=== PATIENT | female | born 1970 | race Two or more races ===

== ENCOUNTER 2020-11-14 17:50 | Emergency (ER) | payer OTHER ==
[2020-11-14 18:18] VITALS: BP 151/98; PULSE 71; TEMP 98.3; BMI 30.2
== END 2020-11-14 20:20 | disposition home or self-care (01) ==
LOC: JER 17:50
DX: R07.89 Other chest pain (principal)
CPT/HCPCS: 71046-TC-FY; 93005; 93010; 99284-25

== ENCOUNTER 2022-12-14 14:49 | Emergency (ER) | payer OTHER ==
[2022-12-14 15:07] VITALS: BP 153/94; PULSE 72; RESP 18; TEMP 98.4; BMI 28.7
[2022-12-14 16:35] LABS: EPI CELLS >36 /uL (0-25.1); HCG,QUALITATIVE URINE Negative; HYALINE CASTS 0 /uL (0-3.1); URINE APPEARANCE CLEAR; URINE BACTERIA 243 /uL (0-1359); URINE BILIRUBIN NEGATIVE (NEGATIVE); URINE COLOR YELLOW; URINE GLUCOSE (UA) NEGATIVE (NEGATIVE); URINE KETONE NEGATIVE (NEGATIVE); URINE LEUK ESTERASE 1+ (NEGATIVE); URINE NITRITE NEGATIVE (NEGATIVE); URINE PROTEIN NEGATIVE (NEGATIVE); URINE RBC 326 /uL (0-23.9); URINE WBC 32 /uL (0-25.8)
[2022-12-14] MEDS ORDERED: SULFAMETHOXAZOLE/TRIMETHOPRIM 800MG/160MG D.S. TABLET PO ONE ×2 (17:14→17:32)
[2022-12-14] MEDS ORDERED: SULFAMETHOXAZOLE/TRIMETHOPRIM 800MG/160MG D.S. TABLET ONE (17:18)
== END 2022-12-14 17:57 | disposition home or self-care (01) ==
LOC: JER 14:49
DX: N39.0 Urinary tract infection, site not specified (principal)
CPT/HCPCS: 76830-TC; 81003; 84703; 87086; 99284-25

== ENCOUNTER 2023-04-14 18:06 | Emergency (ER) | payer OTHER ==
[2023-04-14 18:17] VITALS: BP 149/90; PULSE 95; RESP 20; TEMP 99.2; BMI 27.8
[2023-04-14] MEDS ORDERED: ACETAMINOPHEN 1000 MG/100 ML BAG IVPB ONE (20:22)
[2023-04-14] MEDS ORDERED: METOCLOPRAMIDE HCL INJECTION 10 MG/2 ML VIAL IVPUSH ONE (20:22)
[2023-04-14] MEDS ORDERED: ACETAMINOPHEN INJECTION 100 ML IVPB ONE (20:53)
[2023-04-14] MEDS ORDERED: METOCLOPRAMIDE HCL INJECTION 10 MG/2 ML VIAL ONE (20:53)
[2023-04-14 21:13] LABS: BASO % 0.6 % (0-2.0); HEMATOCRIT 40.8 % (32.4-45.2); HEMOGLOBIN 13.8 GM/dL (10.7-15.3); LYMPH % 5.9 % (8-40); MCH 30.1 pg (25.7-33.7); MCHC 33.9 g/dl (32.0-36.0); MEAN CELL VOLUME 88.8 fl (80-96); MEAN PLT VOLUME 8.4 fl (7.5-11.1); MONO % 3.4 % (3.8-10.2); NEUT % 90.1 % (42.8-82.8); PLATELET COUNT 265 10^3/uL (134-434); RBC 4.59 M/mm3 (3.60-5.2); RDW 13.2 % (11.6-15.6); WHITE BLOOD COUNT 5.3 K/mm3 (4.0-10.0)
[2023-04-14] MEDS ORDERED: KETOROLAC TROMETHAMINE 15 MG/ML VIAL IVPUSH ONE (21:15)
[2023-04-14] MEDS ORDERED: KETOROLAC TROMETHAMINE 15 MG/ML VIAL ONE (21:15)
[2023-04-14 21:40] LABS: POTASSIUM 4.1 mmol/L (3.5-5.1)
[2023-04-14 21:41] LABS: CALCIUM 10.1 mg/dL (8.5-10.1)
[2023-04-14 21:42] LABS: ALBUMIN 4.2 g/dl (3.4-5.0); BLOOD UREA NITROGEN 6.8 mg/dL (7-18)
[2023-04-14 21:45] LABS: CREATININE 0.8 mg/dL (0.55-1.3)
[2023-04-14 21:47] LABS: BILIRUBIN,TOTAL 0.5 mg/dL (0.2-1); TOT PROT 8.4 g/dl (6.4-8.2)
== END 2023-04-15 01:24 | disposition home or self-care (01) ==
LOC: JER 18:06
PROC: 3E033NZ Introduction of Analgesics, Hypnotics, Sedatives into Peripheral Vein, Percutaneous Approach (ICD-10-PCS; principal; 2023-04-14)
PROC: 3E033GC Introduction of Other Therapeutic Substance into Peripheral Vein, Percutaneous Approach (ICD-10-PCS; 2023-04-14)
PROC: 3E033GC Introduction of Other Therapeutic Substance into Peripheral Vein, Percutaneous Approach (ICD-10-PCS; 2023-04-14)
DX: R51.9 Headache, unspecified (principal); R50.9 Fever, unspecified; J32.1 Chronic frontal sinusitis; J32.2 Chronic ethmoidal sinusitis; Z20.822 Contact with and (suspected) exposure to COVID-19
CPT/HCPCS: 0241U-QW; 36415; 80053; 85025; 99284-25; J0131